=== PATIENT | male | born 1990 | race African-American/Black ===

== ENCOUNTER 2016-06-21 15:33 | Emergency (ER) | payer OTHER ==
[~2016-06-21] VITALS: Ht 175.3 cm; Wt 65.8 kg
[2016-06-21 15:54] VITALS: BP 128/74
[2016-06-21] MEDS ORDERED: KETOROLAC TROMETHAMINE INJ 60 MG/2 ML VIAL IM ONE ×2 (16:26→16:30)
[2016-06-21] MEDS ORDERED: ACETAMINOPHEN ES 500 MG TABLET ONE (16:29)
[2016-06-21] MEDS ORDERED: ACETAMINOPHEN 325 MG TABLET PO ONE (16:30)
== END 2016-06-21 16:42 | disposition home or self-care (01) ==
LOC: EDSEX 15:40 → ER 15:40
DX: B34.9 Viral infection, unspecified (principal); F17.210 Nicotine dependence, cigarettes, uncomplicated
CPT/HCPCS: A4606; J1885; Z7610